=== PATIENT | female | born 1930 | race Caucasian/White ===

== ENCOUNTER 2017-12-02 19:07 | Inpatient (IN) | payer OTHER, MEDICAID, MEDICARE ==
[~2017-12-02] VITALS: Ht 152.4 cm; Wt 73.7 kg
[2017-12-02 19:20] VITALS: BP_SYST 184; BP_SYST 187; BP_DIAS 101; BP_DIAS 88; PULSE 75; RESP 18; TEMP 98.2; O2SAT 99
--- NOTE | 2017-12-02 19:39 | PD ---
HPI Chief Complaint: Neuro Symptoms/ Deficits Time Seen by Provider: 19:26 Travel History International Travel<30 days: No Contact w/Intl Traveler<30days: No Traveled to known affect area: No History of Present Illness HPI The patient was seen and examined in the presence of the nurse. This patient is brought in by her daughter. She is worried that her mother is having a stroke. 3 days ago she had a 5 minute spell of slurred and garbled speech that happened when she was talking her daughter over the phone. She drove over to her house but by the time she got there it had resolved. The next 2 days she was neurologically fine. Today she had another episode of slurred and garbled speech for about 5 minutes. It has resolved and she is not talking fine. Accu- Chek 1:15. She is insulin-dependent diabetic and hypertensive but no history of CVA or TIA. She denies headache or injury or fever. No alleviating factors. No exacerbating factors PFSH Social History Alcohol Use: No Tobacco Use: No Substance Use: No Allergies-Medications (Allergen,Severity, Reaction): Coded Allergies: cephalexin (Verified Allergy, Intermediate, Rash, 12/02/17) ciprofloxacin (Verified Allergy, Intermediate, Rash, 12/02/17) Penicillins (Verified Allergy, Unknown, 12/02/17) morphine (Verified Allergy, Unknown, 12/02/17) Reported Meds & Prescriptions Reported Meds & Active Scripts Active Reported Ditropan (Oxybutynin Chloride) 5 Mg Tab 5 Mg PO DAILY Vitamin C (Ascorbic Acid) 250 Mg Tab 250 Mg PO DAILY Flax Seed Oil (Flaxseed (Linseed)) 1,000 Mg Cap 1 Cap PO DAILY Ocuvite (Multiple Vitamins W/ Minerals) 1 Tab 1 Tab PO DAILY Aspirin Low Dose (Aspirin) 81 Mg Chew 81 Mg CHEW HS Hydralazine HCl 25 Mg Tablet 25 Mg PO TID Calcitriol 0.25 Mcg Cap 0.25 Mcg PO MON, WED, FRI Furosemide 20 Mg Tab 20 Mg PO DAILY Losartan (Losartan Potassium) 50 Mg Tab 50 Mg PO DAILY Omeprazole 20 Mg Tab 20 Mg PO DAILY Crestor (Rosuvastatin Calcium) 20 Mg Tab 20 Mg PO DAILY Glipizide 10 Mg Tab 20 Mg PO BIDAC Take 30 minutes before a meal Levemir Flextouch Pen Inj (Insulin Detemir) 300 unit/3 ML Pen 10 Units SQ HS Levemir Flextouch Pen Inj (Insulin Detemir) 300 unit/3 ML Pen 15 Units SQ DAILY Januvia (Sitagliptin Phosphate) 100 Mg Tab 100 Mg PO DAILY Review of Systems General / Constitutional: No: Fever Eyes: No: Visual changes HENT: No: Headaches Cardiovascular: No: Chest Pain or Discomfort Respiratory: No: Shortness of Breath Gastrointestinal: No: Abdominal Pain Genitourinary: No: Dysuria Musculoskeletal: No: Pain Skin: No Rash Neurologic: Positive: Slurred Speech, No: Weakness Psychiatric: No: Depression Endocrine: No: Polydipsia Hematologic/Lymphatic: No: Easy Bruising Physical Exam Narrative GENERAL: Well-nourished, well-developed patient in no apparent distress. Very hard of hearing SKIN: Focused skin assessment reveals no rash and nodules. Skin is Warm and dry. HEAD: Atraumatic. Normocephalic. EYES: Pupils equal and round. No scleral icterus. No injection or drainage. ENT: No nasal bleeding or discharge. Mucous membranes pink and moist. NECK: Trachea midline. No JVD. CARDIOVASCULAR: Regular rate and rhythm. No murmur appreciated. RESPIRATORY: No accessory muscle use. Clear to auscultation. Breath sounds equal bilaterally. GASTROINTESTINAL: Abdomen soft, non-tender, nondistended. Hepatic and splenic margins not palpable. MUSCULOSKELETAL: No obvious deformities. No clubbing. No cyanosis. Symmetric edema of the lower extremities and ankles . NEUROLOGICAL: Awake and alert. No obvious cranial nerve deficits. Motor grossly within normal limits. Normal speech. PSYCHIATRIC: Appropriate mood and affect; insight and judgment normal. Data Data Last Documented VS Vital Signs Date Time Temp Pulse Resp B/P (MAP) Pulse Ox O2 Delivery O2 Flow Rate FiO2 12/02/17 20:24 68 18 173/89 (117) 98 Room Air 12/02/17 19:20 98.2 Orders Orders Electrocardiogram (12/02/17 19:35) Prothrombin Time / Inr (Pt) (12/02/17 19:35) Act Partial Throm Time (Ptt) (12/02/17 19:35) Complete Blood Count With Diff (12/02/17 19:35) Basic Metabolic Panel (Bmp) (12/02/17 19:35) Ct Brain W/O Iv Contrast(Rout) (12/02/17 19:35) Ecg Monitoring (12/02/17 19:35) Iv Access Insert/Monitor (12/02/17 19:35) Oximetry (12/02/17 19:35) Labs Laboratory Tests Test 12/02/17 19:30 White Blood Count 7.1 TH/MM3 Red Blood Count 4.34 MIL/MM3 Hemoglobin 12.6 GM/DL Hematocrit 37.2 % Mean Corpuscular Volume 85.6 FL Mean Corpuscular Hemoglobin 28.9 PG Mean Corpuscular Hemoglobin Concent 33.8 % Red Cell Distribution Width 13.8 % Platelet Count 117 TH/MM3 Mean Platelet Volume 9.3 FL Neutrophils (%) (Auto) 72.7 % Lymphocytes (%) (Auto) 18.6 % Monocytes (%) (Auto) 6.7 % Eosinophils (%) (Auto) 1.0 % Basophils (%) (Auto) 1.0 % Neutrophils # (Auto) 5.1 TH/MM3 Lymphocytes # (Auto) 1.3 TH/MM3 Monocytes # (Auto) 0.5 TH/MM3 Eosinophils # (Auto) 0.1 TH/MM3 Basophils # (Auto) 0.1 TH/MM3 CBC Comment DIFF FINAL Differential Comment Prothrombin Time 10.9 SEC Prothromb Time International Ratio 1.1 RATIO Activated Partial Thromboplast Time 26.6 SEC Blood Urea Nitrogen 26 MG/DL Creatinine 1.40 MG/DL Random Glucose 98 MG/DL Calcium Level 10.5 MG/DL Sodium Level 143 MEQ/L Potassium Level 3.8 MEQ/L Chloride Level 110 MEQ/L Carbon Dioxide Level 25.9 MEQ/L Anion Gap 7 MEQ/L Estimat Glomerular Filtration Rate 36 ML/MIN MDM Medical Decision Making Medical Screen Exam Complete: Yes Emergency Medical Condition: Yes Medical Record Reviewed: Yes Differential Diagnosis TIA, CVA, anxiety Narrative Course I have reviewed the patient's electronic medical record. Reviewed her radiation oncologist note where she received radiation for skin Cancer on the Leg IV placed and labs ordered I reviewed her EKG which shows sinus rhythm Brain CT is negative Lab studies reviewed. She has some renal insufficiency This patient has had 2 episodes of speech slurring/aphasia. Potentially could represent TIA Patient will be observed in the hospital on telemetry for neurologic evaluation Call placed to hospitalist to discuss Diagnosis Primary Impression: TIA (transient ischemic attack) Qualified Codes: G45.9 - Transient cerebral ischemic attack, unspecified Additional Impression: Hypertension Qualified Codes: I10 - Essential (primary) hypertension Admitting Information Admitting Physician Requests: Observation Barry Mcdaniels MD Dec 02, 2017 19:39
[2017-12-02 19:53] LABS: AUTOMATED NEUTROPHIL # 5.1 TH/MM3 (1.8-7.7); BASOPHIL # 0.1 TH/MM3 (0-0.2); EOSINOPHIL # 0.1 TH/MM3 (0-0.4); HEMATOCRIT 37.2 % (35.0-46.0); HEMOGLOBIN 12.6 GM/DL (11.6-15.3); LYMPH % 18.6 % (9.0-44.0); LYMPHOCYTE # 1.3 TH/MM3 (1.0-4.8); MEAN CELL VOLUME 85.6 FL (80.0-100.0); MEAN CORPUSCULAR HEMOGLOBIN 28.9 PG (27.0-34.0); MEAN CORPUSCULAR HGB CONC 33.8 % (32.0-36.0); MEAN PLATELET VOLUME 9.3 FL (7.0-11.0); MONO % 6.7 % (0.0-8.0); MONOCYTE # 0.5 TH/MM3 (0-0.9); NEUT % 72.7 % (16.0-70.0); PLATELET COUNT 117 TH/MM3 (150-450); RED BLOOD COUNT 4.34 MIL/MM3 (4.00-5.30); RED CELL DISTRIBUTION WIDTH 13.8 % (11.6-17.2); WHITE BLOOD COUNT 7.1 TH/MM3 (4.0-11.0)
[2017-12-02 20:05] LABS: BICARBONATE 25.9 MEQ/L (21.0-32.0); CALCIUM 10.5 MG/DL (8.5-10.1)
[2017-12-02 20:07] LABS: INTERNATIONAL NORMALIZED RATIO 1.1 RATIO; PROTHROMBIN TIME - PATIENT 10.9 SEC (9.8-11.6)
[2017-12-02] MEDS ORDERED: FLAX100013 PO (20:08)
[2017-12-02] MEDS ORDERED: FURO20TA PO (20:08)
[2017-12-02] MEDS ORDERED: OXYB5TAB8 PO (20:08)
[2017-12-02] MEDS ORDERED: HYDR-3799 PO (20:08)
[2017-12-02] MEDS ORDERED: CALC0.25 PO (20:08)
[2017-12-02] MEDS ORDERED: OMEP20TA93 PO (20:08)
[2017-12-02] MEDS ORDERED: OCUVTAB PO (20:08)
[2017-12-02] MEDS ORDERED: SITA1TAB2 PO (20:08)
[2017-12-02] MEDS ORDERED: ASPI81CH6 CHEW (20:08)
[2017-12-02] MEDS ORDERED: VITA250T3 PO (20:08)
[2017-12-02] MEDS ORDERED: LOSA50TA PO (20:08)
[2017-12-02] MEDS ORDERED: INSU1INJ5 SQ ×2 (20:08)
[2017-12-02] MEDS ORDERED: ROSU20 PO (20:08)
[2017-12-02] MEDS ORDERED: GLIP10TA6 PO (20:08)
[2017-12-02 20:09] LABS: CREATININE 1.4 MG/DL (0.50-1.00)
[2017-12-02 20:24] VITALS: BP 173/89; PULSE 68; RESP 18; O2SAT 98
--- NOTE | 2017-12-02 21:05 | RADRPT ---
EXAM DATE/TIME: 12/02/2017 20:06 [facility] COMPARISON: No previous studies available for comparison. INDICATIONS : Altered mental status. Slurred speech. RADIATION DOSE: 61.85 CTDIvol (mGy) MEDICAL HISTORY : Hypertension. Diabetes mellitus type 2. Renal failure, chronic. SURGICAL HISTORY : None. ENCOUNTER: Initial ACUITY: 4 - 6 days PAIN SCALE: 5/10 LOCATION: cranial TECHNIQUE: Multiple contiguous axial images were obtained of the head. Using automated exposure control and adj ustment of the mA and/or kV according to patient size, radiation dose was kept as low as reasonably a chievable to obtain optimal diagnostic quality images. DICOM format image data is available electro nically for review and comparison. FINDINGS: CEREBRUM: The ventricles are normal for age. No evidence of midline shift, mass lesion, hemorrhage or acute in farction. No extra-axial fluid collections are seen. POSTERIOR FOSSA: The cerebellum and brainstem are intact. The 4th ventricle is midline. The cerebellopontine angle i s unremarkable. EXTRACRANIAL: The visualized portion of the orbits is intact. SKULL: The calvaria is intact. No evidence of skull fracture. CONCLUSION: No acute intracranial abnormality. Maynor Cunha MD on December 02, 2017 at 21:01 Board Certified Radiologist. This report was verified electronically.
[2017-12-02] MEDS ORDERED: SODIUM CHLORIDE 0.9% FLUSH 10 ML FLUSH IV FLUSH PRN (21:45)
[2017-12-02] MEDS ORDERED: GLUCAGON 1 MG/ML VIAL OTHER PRN (21:45)
[2017-12-02] MEDS ORDERED: DEXTROSE 50% IN WATER 50 ML VIAL(D50) IV PUSH PRN (21:45)
[2017-12-02 22:35] VITALS: BP 142/64; PULSE 63; RESP 18; O2SAT 95
[2017-12-02 23:15] VITALS: BP 150/68; PULSE 63; RESP 20; TEMP 98; O2SAT 96
[2017-12-03] VITALS (7 sets, daily range): BP systolic 121–186; BP diastolic 57–85; PULSE 55–64; RESP 18–20; TEMP 96.7–97.7; O2SAT 95–100
[2017-12-03] MEDS: SODIUM CHLORIDE 0.9% FLUSH 10 ML FLUSH IV FLUSH SCH ×3 (08:35→20:49)
[2017-12-03] MEDS ORDERED: FLAXSEED PO SCH (09:45)
[2017-12-03] MEDS ORDERED: DEXTROSE 50% IN WATER 50 ML VIAL(D50) IV PUSH PRN (09:45)
[2017-12-03] MEDS ORDERED: SODIUM CHLORIDE 0.9% FLUSH 10 ML FLUSH IV FLUSH PRN (09:45)
[2017-12-03] MEDS ORDERED: GLUCAGON 1 MG/ML VIAL OTHER PRN (09:45)
--- NOTE | 2017-12-03 09:48 | HHI.HP ---
[facility] Primary Care Physician Toño Thomas DO Admission Diagnosis TIA, HTN Diagnoses: (1) GERD (gastroesophageal reflux disease) Diagnosis: Secondary (2) Hyperlipidemia Diagnosis: Secondary (3) Diabetes mellitus Diagnosis: Secondary (4) Hypertension Diagnosis: Secondary (5) TIA (transient ischemic attack) Diagnosis: Principal Chief Complaint: Neuro symptoms/deficit/TIA Travel History International Travel<30 Days: No Contact w/Intl Traveler <30 Da: No Traveled to Known Affected Are: No History of Present Illness Patient is a 87-year-old female who presented with slurred speech per her daughter. Patient was brought in by her daughter. Daughter was worried that that her mother was having a stroke. 3 days ago patient had a 5 minute spell of slurred and garbled speech that happened when she was talking with her daughter over the phone. Her daughter drove over to her house but by the time she got there it had resolved. The next 2 days she was neurologically fine yesterday she had another episode of slurred and garbled speech for about 5 minutes it resolved and and patient is now talking normally. She is an insulin- dependent diabetic and has hypertension no history of CVAs or TIAs. Was found to have a normal blood sugar, At that time Patient will be seen by neurology. Will check a urinalysis. 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 Review of Systems Constitutional: DENIES: Diaphoretic episodes, Fatigue, Fever, Weight gain, Weight loss, Chills, Dizziness, Change in appetite, Night Sweats Endocrine: DENIES: Abnorml menstrual pattern, Heat/cold intolerance, Polydipsia , Polyuria, Polyphagia Eyes: DENIES: Blurred vision, Diplopia, Eye inflammation, Eye pain, Vision loss , Photosensitivity, Double Vision Ears, nose, mouth, throat: COMPLAINS OF: Hearing loss, DENIES: Tinnitus, Vertigo, Nasal discharge, Oral lesions, Throat pain, Hoarseness, Ear Pain, Running Nose, Epistaxis, Sinus Pain, Toothache, Odynophagia Respiratory: DENIES: Apneas, Cough, Snoring, Wheezing, Hemoptysis, Sputum production, Shortness of breath Cardiovascular: DENIES: Chest pain, Palpitations, Syncope, Dyspnea on Exertion , PND, Lower Extremity Edema, Orthopnea, Claudication Gastrointestinal: DENIES: Abdominal pain, Black stools, Bloody stools, Constipation, Diarrhea, Nausea, Vomiting, Difficulty Swallowing, Anorexia Genitourinary: DENIES: Abnormal vaginal bleeding, Dysmenorrhea, Dyspareunia, Sexual dysfunction, Urgency, Hematuria Musculoskeletal: DENIES: Joint pain, Muscle aches, Stiffness, Joint Swelling, Back pain, Neck pain Integumentary: DENIES: Abnormal pigmentation, Pruritus, Rash, Nail changes, Breast masses, Breast skin changes Hematologic/lymphatic: DENIES: Bruising, Lymphadenopathy Immunologic/allergic: DENIES: Eczema, Urticaria Neurologic: COMPLAINS OF: Speech Problems, DENIES: Abnormal gait, Headache, Localized weakness, Paresthesias, Seizures, Tremor, Poor Balance Psychiatric: DENIES: Anxiety, Confusion, Mood changes, Depression, Hallucinations, Agitation, Suicidal Ideation, Homicidal Ideation, Delusions Except as stated in HPI: all other systems reviewed are Neg Past Family Social History Past Medical History Diabetes mellitus Hypertension Hyperlipidemia GERD Renal insufficiency Urinary incontinence Skin cancer Past Surgical History Blepharoplasty cataract surgery Skin cancer History of tracheotomy as a child Tubal ligation cholecystectomy Reported Medications Reported Meds & Active Scripts Active Reported Ditropan (Oxybutynin Chloride) 5 Mg Tab 5 Mg PO DAILY Vitamin C (Ascorbic Acid) 250 Mg Tab 250 Mg PO DAILY Flax Seed Oil (Flaxseed (Linseed)) 1,000 Mg Cap 1 Cap PO DAILY Ocuvite (Multiple Vitamins W/ Minerals) 1 Tab 1 Tab PO DAILY Aspirin Low Dose (Aspirin) 81 Mg Chew 81 Mg CHEW HS Hydralazine HCl 25 Mg Tablet 25 Mg PO TID Calcitriol 0.25 Mcg Cap 0.25 Mcg PO MON, WED, FRI Furosemide 20 Mg Tab 20 Mg PO DAILY Losartan (Losartan Potassium) 50 Mg Tab 50 Mg PO DAILY Omeprazole 20 Mg Tab 20 Mg PO DAILY Crestor (Rosuvastatin Calcium) 20 Mg Tab 20 Mg PO DAILY Glipizide 10 Mg Tab 20 Mg PO BIDAC Take 30 minutes before a meal Levemir Flextouch Pen Inj (Insulin Detemir) 300 unit/3 ML Pen 10 Units SQ HS Levemir Flextouch Pen Inj (Insulin Detemir) 300 unit/3 ML Pen 15 Units SQ DAILY Januvia (Sitagliptin Phosphate) 100 Mg Tab 100 Mg PO DAILY Allergies: Coded Allergies: cephalexin (Verified Allergy, Intermediate, Rash, 12/02/17) ciprofloxacin (Verified Allergy, Intermediate, Rash, 12/02/17) Penicillins (Verified Allergy, Unknown, 12/02/17) morphine (Verified Allergy, Unknown, 12/02/17) Active Ordered Medications Current Medications Sodium Chloride (NS Flush) 2 ml BID IV FLUSH Last administered on 12/03/17at 08: 35; Start 12/03/17 at 09:00 Sodium Chloride (NS Flush) 2 ml UNSCH PRN IV FLUSH FLUSH AFTER USING IV ACCESS ; Start 12/02/17 at 21:45 Dextrose (D50w (Vial) Inj) 50 ml UNSCH PRN IV PUSH HYPOGLYCEMIA-SEE COMMENTS; Start 12/02/17 at 21:45 Glucagon (Glucagon Inj) 1 mg UNSCH PRN OTHER HYPOGLYCEMIA-SEE COMMENTS; Start 12/02/17 at 21:45 Family History Patient's parents both hypertension in the family Social History Former smoker quit about 20 years ago denies any current tobacco Denies any alcohol or illicits Physical Exam Vital Signs Vital Signs Date Time Temp Pulse Resp B/P (MAP) Pulse Ox O2 Delivery O2 Flow Rate FiO2 12/03/17 07:55 96.7 55 18 138/57 (84) 98 12/03/17 04:08 97.1 60 20 145/66 (92) 96 12/02/17 23:15 98.0 63 20 150/68 (95) 96 12/02/17 23:15 12/02/17 23:15 98.0 63 20 150/68 (95) 96 12/02/17 22:35 63 18 142/64 (90) 95 Room Air 12/02/17 20:24 68 18 173/89 (117) 98 Room Air 12/02/17 19:20 Room Air 12/02/17 19:20 98.2 75 18 184/88 (120) 99 187/101 (129) Physical Exam GENERAL: This is a well-nourished, well-developed patient, in no apparent distress. SKIN: No rashes, ecchymoses or lesions. Cool and dry. HEAD: Atraumatic. Normocephalic. No temporal or scalp tenderness. EYES: Pupils equal round and reactive. Extraocular motions intact. No scleral icterus. No injection or drainage. ENT: Nose without bleeding, purulent drainage or septal hematoma. Throat without erythema, tonsillar hypertrophy or exudate. Uvula midline. Airway patent. NECK: Trachea midline. No JVD or lymphadenopathy. Supple, nontender, no meningeal signs. CARDIOVASCULAR: Regular rate and rhythm without murmurs, gallops, or rubs. RESPIRATORY: Clear to auscultation. Breath sounds equal bilaterally. No wheezes , rales, or rhonchi. GASTROINTESTINAL: Abdomen soft, non-tender, nondistended. No hepato-splenomegaly , or palpable masses. No guarding. MUSCULOSKELETAL: Extremities without clubbing, cyanosis, or edema. No joint tenderness, effusion, or edema noted. No calf tenderness. Negative Homans sign bilaterally. NEUROLOGICAL: Awake and alert. Cranial nerves II through XII intact. Motor and sensory grossly within normal limits. Five out of 5 muscle strength in all muscle groups. Normal speech. Insight and judgment is good Mood behaviors appropriate Laboratory Laboratory Tests Test 12/02/17 19:30 12/03/17 05:15 White Blood Count 7.1 Red Blood Count 4.34 Hemoglobin 12.6 Hematocrit 37.2 Mean Corpuscular Volume 85.6 Mean Corpuscular Hemoglobin 28.9 Mean Corpuscular Hemoglobin Concent 33.8 Red Cell Distribution Width 13.8 Platelet Count 117 Mean Platelet Volume 9.3 Neutrophils (%) (Auto) 72.7 Lymphocytes (%) (Auto) 18.6 Monocytes (%) (Auto) 6.7 Eosinophils (%) (Auto) 1.0 Basophils (%) (Auto) 1.0 Neutrophils # (Auto) 5.1 Lymphocytes # (Auto) 1.3 Monocytes # (Auto) 0.5 Eosinophils # (Auto) 0.1 Basophils # (Auto) 0.1 CBC Comment DIFF FINAL Differential Comment Prothrombin Time 10.9 Prothromb Time International Ratio 1.1 Activated Partial Thromboplast Time 26.6 Blood Urea Nitrogen 26 Creatinine 1.40 Random Glucose 98 Calcium Level 10.5 Sodium Level 143 Potassium Level 3.8 Chloride Level 110 Carbon Dioxide Level 25.9 Anion Gap 7 Estimat Glomerular Filtration Rate 36 Result Diagram: 12/02/17192912/02/171929 Imaging Last Impressions Head CT 12/02/171934 Signed Impressions: Service Date/Time: Saturday, December 02, 2017 20:06 - CONCLUSION: No acute intracranial abnormality. MD Mariola Esquivel VTE Risk Assessment Caprini VTE Risk Assessment: Mod/High Risk (score >= 2) Caprini Risk Assessment Model Point Value = 1 Point Value = 2 Point Value = 3 Point Value = 5 Age 41-60 Minor surgery BMI > 25 kg/m2 Swollen legs Varicose veins or History of unexplained or recurrent spontaneous Oral contraceptives or hormone replacement Sepsis (< 1 month) Serious lung disease, including pneumonia (< 1 month) Abnormal pulmonary function Acute myocardial infarction Congestive heart failure (< 1 month) History of inflammatory bowel disease Medical patient at bed rest Age 61-74 Arthroscopic surgery Major open surgery (> 45 min) Laparoscopic surgery (> 45 min) Malignancy Confined to bed (> 72 hours) Immobilizing plaster cast Central venous access Age >= 75 History of VTE Family history of VTE Factor V Leiden Prothrombin 28196T Lupus anticoagulant Anticardiolipin antibodies Elevated serum homocysteine Heparin-induced thrombocytopenia Other congenital or acquired thrombophilia Stroke (< 1 month) Elective arthroplasty Hip, pelvis, or leg fracture Acute spinal cord injury (< 1 month) Prophylaxis Regimen Total Risk Factor Score Risk Level Prophylaxis Regimen 0-1 Low Early ambulation 2 Moderate Order ONE of the following: *Sequential Compression Device (SCD) *Heparin 5000 units SQ BID 3-4 Higher Order ONE of the following medications: *Heparin 5000 units SQ TID *Enoxaparin/Lovenox 40 mg SQ daily (WT < 150 kg, CrCl > 30 mL/min) *Enoxaparin/Lovenox 30 mg SQ daily (WT < 150 kg, CrCl > 10-29 mL/min) *Enoxaparin/Lovenox 30 mg SQ BID (WT < 150 kg, CrCl > 30 mL/min) AND/OR *Sequential Compression Device (SCD) 5 or more Highest Order ONE of the following medications: *Heparin 5000 units SQ TID (Preferred with Epidurals) *Enoxaparin/Lovenox 40 mg SQ daily (WT < 150 kg, CrCl > 30 mL/min) *Enoxaparin/Lovenox 30 mg SQ daily (WT < 150 kg, CrCl > 10-29 mL/min) *Enoxaparin/Lovenox 30 mg SQ BID (WT < 150 kg, CrCl > 30 mL/min) AND *Sequential Compression Device (SCD) Assessment and Plan Problem List: (1) GERD (gastroesophageal reflux disease) ICD Code: K21.9 - Gastro-esophageal reflux disease without esophagitis (2) Hyperlipidemia ICD Code: E78.5 - Hyperlipidemia, unspecified (3) Diabetes mellitus ICD Code: E11.9 - Type 2 diabetes mellitus without complications (4) Hypertension ICD Code: I10 - Essential (primary) hypertension Status: Acute (5) TIA (transient ischemic attack) ICD Code: G45.9 - Transient cerebral ischemic attack, unspecified Status: Acute Assessment and Plan TIA type symptoms versus CVA We will consult neurology We will continue on an aspirin We will get echocardiogram We will get carotid Dopplers We will get MRI and MRA We will ask physical therapy and occupational therapy and speech therapy to eval and treat Hypertension resume home medications Hyperlipidemia resume home statin check fasting lipids GERD continue on her home medications Diabetes mellitus sliding scale coverage with Accu-Cheks before meals and at bedtime, is on multiple medications for this may have had a hypoglycemic event??? Overflow incontinence resume her Ditropan We will check a urinalysis to make sure she does not have a urinary tract infection Renal insufficiency chronic kidney disease stage II-III depending on ua and neurology possible dc to home later today or tomorrow Code Status full code Discussed Condition With RN and patient Problem Qualifiers (1) Hypertension: Qualified Codes: I10 - Essential (primary) hypertension (2) TIA (transient ischemic attack): Qualified Codes: G45.9 - Transient cerebral ischemic attack, unspecified Toño Francis DO Dec 03, 2017 09:48
[2017-12-03] MEDS ORDERED: PILL SPLITTER OTHER PRN (10:15)
[2017-12-03 10:34] LABS: TROPONIN I LESS THAN 0.02 NG/ML (0.02-0.05)
[2017-12-03 10:37] LABS: CHOLESTEROL 81 MG/DL (120-200)
[2017-12-03 10:42] LABS: CHOLESTEROL/ HDL RATIO 2.46 RATIO; HDL CHOLESTEROL 32.8 MG/DL (40.0-60.0); LDL CHOLESTEROL 21 MG/DL (0-99); TRIGLYCERIDES 137 MG/DL (42-150)
--- NOTE | 2017-12-03 10:59 | RADRPT ---
EXAM DATE/TIME: 12/03/2017 08:54 [facility] COMPARISON: No previous studies available for comparison. INDICATIONS : Cerebrovascular accident. MEDICAL HISTORY : Hypertension. Dentures. Dyspnea. Diverticulitis. Renal failure. Arthritis. Diabetes. Tracheotomy. Skin cancer. Radiation therapy. SURGICAL HISTORY : Tonsillectomy. Cholecystectomy. Tubal ligation. Cataract surgery. ENCOUNTER: Initial ACUITY: 1 day PAIN SCORE: 0/10 LOCATION: Bilateral neck PEAK SYSTOLIC VELOCITIES (cm/sec): ICA/CCA RATIO: Right: 1.5 Left: 0.9 ICA: Right: 77.5 Left: 57.0 CCA: Right: 51.5 Left: 64.5 ECA: Right: 78.5 Left: 75.8 VERTEBRAL: Right: 55.5 antegrade Left: 41.7 antegrade Elevated flow velocities and ICA/CCA ratios have been found to correlate with increased degrees of vessel stenosis, calculated as percentage of diameter relative to a normal segment of distal ICA/CCA FINDINGS: RIGHT CAROTID: There is no evidence for a hemodynamically significant carotid stenosis. Minimal int imal hyperplasia is present with scattered calcific plaque. LEFT CAROTID: There is no evidence for a hemodynamically significant carotid stenosis. Minimal inti mal hyperplasia is present with scattered calcific plaque. VERTEBRAL ARTERIES: Flow is antegrade in both vertebral arteries. MISCELLANEOUS: There are no ancillary masses or adenopathy. CONCLUSION: Negative examination for a hemodynamically significant carotid stenosis. Toño Young MD FACR on December 03, 2017 at 10:57 Board Certified Radiologist. This report was verified electronically.
[2017-12-03] MEDS: ATORVASTATIN 40 MG TAB PO SCH (11:25)
[2017-12-03] MEDS: PANTOPRAZOLE SOD 20 MG DELAYED RELEASE TAB PO SCH (11:26)
[2017-12-03] MEDS: ASCORBIC ACID 500 MG TAB PO SCH (11:26)
[2017-12-03] MEDS: OXYBUTYNIN CHLORIDE 5 MG TAB PO SCH (11:27)
[2017-12-03] MEDS: LOSARTAN 50 MG TAB PO SCH (11:27)
[2017-12-03] MEDS: MULTIVITAMIN-OPHTHALMIC 1 TAB PO SCH (11:28)
[2017-12-03] MEDS: FUROSEMIDE 20 MG TAB PO SCH (11:28)
[2017-12-03] MEDS: INSULIN ASPART SUPPLEMENTAL SCALE SQ SCH ×3 (12:00→20:50)
[2017-12-03] MEDS ORDERED: ENOXAPARIN SODIUM 30 MG/0.3 ML SYRINGE SQ SCH (12:00)
[2017-12-03] MEDS: hydrALAZINE HCL 25 MG TAB PO SCH ×2 (12:37→17:23)
[2017-12-03 13:32] LABS: BILIRUBIN, URINE NEG (NEG); BLOOD, URINE NEG (NEG); GLUCOSE,URINE NEG (NEG); KETONE, URINE NEG (NEG); NITRITE,URINE NEG (NEG); PH, URINE 6.5 (5.0-8.5); URINE COLOR YELLOW (YELLW/STRAW); URINE LEUKOCYTE ESTERASE NEG (NEG)
[2017-12-03 13:50] LABS: SQUAMOUS EPITHELIAL CELL URINE 0-5 /hpf (0-5)
--- NOTE | 2017-12-03 15:52 | RADRPT ---
EXAM DATE/TIME: 12/03/2017 14:23 [facility] COMPARISON: No previous studies available for comparison. INDICATIONS : Stroke. MEDICAL HISTORY : Hypertension. Diabetes mellitus type 2. Renal failure, chronic. SURGICAL HISTORY : Cholecystectomy. Kidney Stones, Hernia ENCOUNTER: Subsequent ACUITY: 2 day PAIN SCORE: 0/10 LOCATION: BRAIN - COW Please note a normal MRA of the brain does not entirely exclude the possibility of a small aneurysm, nor the possibility of distal intracranial vessel disease. TECHNIQUE: 3D time of flight MRA was performed. Source images, multiplanar STS MIP, and 3D volume MIP reconstru ctions were reviewed. FINDINGS: There is mild proximal stenotic narrowing of the anterior temporal branch of the left middle cerebral artery. The [place] vessels are lies symmetric, intact and unremarkable with no evidence of major vessel occlusion. There is no evidence of aneurysm or vascular malformation. CONCLUSION: Mild focal stenotic narrowing of the anterior temporal branch of left MCA which is likely intrinsic N ephrotic disease. No acute cerebrovascular findings. Rachid Mooney MD on December 03, 2017 at 15:46 Board Certified Radiologist. This report was verified electronically.
[2017-12-03 16:24] LABS: TROPONIN I LESS THAN 0.02 NG/ML (0.02-0.05)
--- NOTE | 2017-12-03 16:42 | RADRPT ---
EXAM DATE/TIME: 12/03/2017 14:23 [facility] COMPARISON: No previous studies available for comparison. INDICATIONS : CVA. MEDICAL HISTORY : Hypertension. Diabetes mellitus type 2. Renal failure, chronic. SURGICAL HISTORY : Cholecystectomy. Kidney Stones, Hernia ENCOUNTER: Subsequent ACUITY: PAIN SCORE: 0/10 LOCATION: BRAIN TECHNIQUE: Multiplanar, multisequence MRI of the brain was performed without contrast. FINDINGS: CEREBRUM: Mild diffuse cerebral volume loss. The ventricles are normal for degree of atrophy. No evidence of m idline shift, mass lesion, hemorrhage or acute infarction. No extraaxial fluid collections are seen. The pituitary gland and suprasellar cistern are normal in configuration. WHITE MATTER: Moderate periventricular and focal white matter T2 prolongation. POSTERIOR FOSSA: The cerebellum and brainstem are intact. The 4th ventricle is midline. The cerebellopontine angle is unremarkable. The cerebellar tonsils are normal in position. DIFFUSION IMAGING: No focal areas of restricted diffusion are seen. No evidence of acute infarction. EXTRACRANIAL: The visualized portions of the orbits and paranasal sinuses are unremarkable. CONCLUSION: 1. Senescent changes with moderate periventricular small vessel ischemic white matter demyelination. 2. No acute abnormality. Specifically, no acute infarction, mass or hemorrhage. Missael Piper MD on December 03, 2017 at 16:37 Board Certified Radiologist. This report was verified electronically.
--- NOTE | 2017-12-03 17:19 | HHI.FF ---
Face to Face Verification Diagnosis: (1) GERD (gastroesophageal reflux disease) (2) Hyperlipidemia (3) Diabetes mellitus (4) Hypertension (5) TIA (transient ischemic attack) Physical Therapy Order: Evaluate and Treat, Improve ambulation, Strength and gait training Occupational Therapy Order: Evaluate and Treat, Improve ADL, Gross motor coordination, Fine motor coordination Home Health Nursing Order: Signs/symptoms of disease process Nursing assessment with vital signs Home Health Aide Order: To Assist In: Bathing and personal care, siding stapler and meal prep I have seen patient Vika Flores on 12/03/17. My clinical findings support the need for the requested home health care services because: Deconditioned w/ increased weakness I certify that my clinical findings support that this patient is homebound because: Need for psychosocial assistance Toño Francis DO Dec 03, 2017 17:19
[2017-12-03 18:19] LABS: HEMOGLOBIN A1C 6.5 % (4.3-6.0)
--- NOTE | 2017-12-03 19:49 | ECHRPT ---
Indication: CVA/TIA CONCLUSIONS The left ventricular systolic function is normal with an estimated ejection fraction in the range of 60-65%. Normal left ventricular size. Wall thickness is normal. No regional wall motion abnormalities are present. Aortic valve sclerosis is present. Trace aortic valve regurgitation. There is trace tricuspid valve regurgitation. The estimated pulmonary arterial pressure is 41 mmHg. BP: 145 / 66 HR: 92 Rhythm: Sinus MEASUREMENTS (Male / Female) Normal Values Technical Quality:Fair 2D ECHO LV Diastolic Diameter PLAX 4.3 cm 4.2 - 5.9 / 3.9 - 5.3 cm LV Systolic Diameter PLAX 3.0 cm IVS Diastolic Thickness 1.4 cm 0.6 - 1.0 / 0.6 - 0.9 cm LVPW Diastolic Thickness 1.3 cm 0.6 - 1.0 / 0.6 - 0.9 cm LV Relative Wall Thickness 0.6 RV Internal Dim ED PLAX 2.8 cm LVOT Diameter 1.8 cm LA Systolic Diameter LX 3.9 cm 3.0 - 4.0 / 2.7 - 3.8 cm LV Ejection Fraction MOD 4C 64.4 % LV Cardiac Index MOD 4C 2409.6 cm/minm LV Ejection Fraction 4C AL 66.4 % LV Cardiac Index 4C AL 2651.8 cm/minm M-MODE Aortic Root Diameter MM 2.3 cm LA Systolic Diameter MM 3.8 cm LA Ao Ratio MM 1.7 AV Cusp Separation MM 1.7 cm DOPPLER AV Peak Velocity 160.0 cm/s AV Peak Gradient 10.2 mmHg LVOT Peak Velocity 110.0 cm/s LVOT Peak Gradient 4.8 mmHg AV Area Cont Eq pk 1.7 cm MV Area PHT 2.8 cm Mitral E Point Velocity 122.0 cm/s Mitral A Point Velocity 84.9 cm/s Mitral E to A Ratio 1.4 LV E' Lateral Velocity 6.7 cm/s Mitral E to LV E' Lateral Ratio 18.1 LV E' Septal Velocity 4.8 cm/s Mitral E to LV E' Septal Ratio 25.5 TR Peak Velocity 278.0 cm/s TR Peak Gradient 30.9 mmHg Right Atrial Pressure 10.0 mmHg Pulmonary Artery Systolic Pressu 40.9 mmHg Right Ventricular Systolic Press 40.9 mmHg PV Peak Velocity 92.3 cm/s PV Peak Gradient 3.4 mmHg FINDINGS LEFT VENTRICLE The left ventricular systolic function is normal with an estimated ejection fraction in the range of 60-65%. Normal left ventricular size. Wall thickness is normal. No regional wall motion abnormalities are present. RIGHT VENTRICLE Normal right ventricular size and systolic function. LEFT ATRIUM The left atrial size is normal. RIGHT ATRIUM The right atrial size is normal. ATRIAL SEPTUM Normal atrial septal thickness without atrial level shunting by limited color doppler interrogation. AORTA The aortic root and proximal ascending aorta are normal in size on limited imaging. MITRAL VALVE Structurally normal mitral valve. No mitral valve stenosis or regurgitation. AORTIC VALVE Trileaflet aortic valve. Aortic valve sclerosis is present. Trace aortic valve regurgitation. TRICUSPID VALVE Structurally normal tricuspid valve. There is trace tricuspid valve regurgitation. The estimated pulmonary arterial pressure is 40.9 mmHg. PULMONARY VALVE No pulmonary valve regurgitation or stenosis. VESSELS The inferior vena cava is normal in size. PERICARDIUM No pericardial effusion. Roopa Moyer MD, FACC (Electronically Signed) Final Date:03 December 2017 19:48
--- NOTE | 2017-12-03 20:37 | EKG ---
Date Performed: 12/02/2017 Time Performed: 19:51:16 PTAGE: 87 years EKG: ECTOPIC ATRIAL RHYTHM MINIMAL ST DEPRESSION ABNORMAL RHYTHM ECG NO PREVIOUS TRACING DOCTOR: Mann Guzman Interpretating Date/Time 12/03/2017 20:36:53
[2017-12-03] MEDS ORDERED: ASPIRIN 81 MG CHEW TAB CHEW SCH (21:00)
[2017-12-03 22:24] LABS: TROPONIN I LESS THAN 0.02 NG/ML (0.02-0.05)
[2017-12-04] VITALS: BP 127/60; PULSE 57; RESP 20; TEMP 97.5; O2SAT 96
--- NOTE | 2017-12-04 00:28 | MB ---
cc: Clay Mina MD, PhD DATE: 12/04/2017 REASON FOR CONSULTATION: Stroke. HISTORY OF PRESENT ILLNESS: Ms. Flores is a very pleasant 87-year-old woman who came to the emergency room with sudden onset of slurred speech. No focal deficits were noted. Several days prior to this, she had an episode of slurred speech, which resolved. The patient denies any focal weakness. Denies headaches. PAST MEDICAL HISTORY: History of insulin-dependent diabetes, hypertension, GERD, renal insufficiency, urinary incontinence, blepharoplasty, cataract surgery, skin cancer, tubal ligation, cholecystectomy. MEDICINES AT HOME: Ditropan, vitamin C, flaxseed oil, aspirin 81 mg daily, Ocuvite, calcitriol, Lasix, losartan, Crestor, glipizide, insulin. ALLERGIES: CEPHALEXIN, CIPROFLOXACIN, PENICILLIN, MORPHINE. PHYSICAL EXAMINATION: VITAL SIGNS: Blood pressure is 121/58, pulse 58, respirations 20, temperature 97 degrees. NEUROLOGIC: Higher cortical function alert and oriented. Speech minimally dysarthric but not aphasic. Cranial nerves are intact. Motor exam 5/5 strength of all groups in both upper and lower extremities. There is no drift. Reflexes are symmetric at 2+. MRI of the brain shows atrophy, chronic changes, no acute change present. Carotid ultrasound is normal with no sign of any stenosis. MRA brain mild focal narrowing of the left MCA anterior temporal branch. CT brain: No acute change. LABORATORY DATA: White count 7100, hemoglobin 12.6, hematocrit 37%, platelet count 117,000. PT 10.9, INR 1.1, APTT 26.6. Sodium 143, potassium 3.8, chloride 110, BUN is 26, creatinine 1.4, GFR is 36, glucose 98. Cholesterol 81, LDL 21, triglycerides 137, HDL 32.8. EKG shows an ectopic atrial rhythm. IMPRESSION: Probable transient ischemic attack, now resolved. RECOMMENDATIONS: Recommend start Plavix 75 mg daily and stop aspirin. Will obtain an echocardiogram. Also monitor cardiac telemetry, rule out atrial fibrillation. If the patient is stable tomorrow, would be able to discharge home from the neurologic standpoint. Follow up with me in 3-4 weeks as outpatient. Clay Mina MD, PhD YRIS/rt , 12:07 AM , 12:27 AM
[2017-12-04 04:00] VITALS: BP 122/66; PULSE 65; RESP 20; TEMP 97.1; O2SAT 96
[2017-12-04 08:00] VITALS: PULSE 69
[2017-12-04] MEDS: INSULIN ASPART SUPPLEMENTAL SCALE SQ SCH (08:00)
[2017-12-04] MEDS: MULTIVITAMIN-OPHTHALMIC 1 TAB PO SCH (08:09)
[2017-12-04] MEDS: PANTOPRAZOLE SOD 20 MG DELAYED RELEASE TAB PO SCH (08:10)
[2017-12-04] MEDS: hydrALAZINE HCL 25 MG TAB PO SCH (08:10)
[2017-12-04] MEDS: FUROSEMIDE 20 MG TAB PO SCH (08:10)
[2017-12-04] MEDS: LOSARTAN 50 MG TAB PO SCH (08:10)
[2017-12-04] MEDS: OXYBUTYNIN CHLORIDE 5 MG TAB PO SCH (08:10)
[2017-12-04] MEDS: ASCORBIC ACID 500 MG TAB PO SCH (08:11)
[2017-12-04] MEDS: ATORVASTATIN 40 MG TAB PO SCH (08:11)
[2017-12-04] MEDS: SODIUM CHLORIDE 0.9% FLUSH 10 ML FLUSH IV FLUSH SCH (08:12)
--- NOTE | 2017-12-04 08:19 | HHI.DS ---
Discharge Summary Admission Date Dec 03, 2017 at 10:10 Discharge Date: Dec 04, 2017 Admitting Diagnosis TIA, HTN (1) GERD (gastroesophageal reflux disease) ICD Code: K21.9 - Gastro-esophageal reflux disease without esophagitis (2) Hyperlipidemia ICD Code: E78.5 - Hyperlipidemia, unspecified (3) Diabetes mellitus ICD Code: E11.9 - Type 2 diabetes mellitus without complications (4) Hypertension ICD Code: I10 - Essential (primary) hypertension Status: Acute (5) TIA (transient ischemic attack) ICD Code: G45.9 - Transient cerebral ischemic attack, unspecified Status: Acute Procedures No procedures Brief History - From Admission Patient is a 87-year-old female who presented with slurred speech per her daughter. Patient was brought in by her daughter. Daughter was worried that that her mother was having a stroke. 3 days ago patient had a 5 minute spell of slurred and garbled speech that happened when she was talking with her daughter over the phone. Her daughter drove over to her house but by the time she got there it had resolved. The next 2 days she was neurologically fine yesterday she had another episode of slurred and garbled speech for about 5 minutes it resolved and and patient is now talking normally. She is an insulin- dependent diabetic and has hypertension no history of CVAs or TIAs. Was found to have a normal blood sugar, At that time Patient will be seen by neurology. Will check a urinalysis. Patient states she was recently started on new medication she is not sure what by her systems security consultant CBC/BMP: 12/02/17192912/02/171929 Significant Findings Laboratory Tests Test 12/02/17 19:30 12/03/17 05:15 12/03/17 10:00 12/03/17 12:30 Platelet Count 117 TH/MM3 (150-450) Neutrophils (%) (Auto) 72.7 % (16.0-70.0) Blood Urea Nitrogen 26 MG/DL (7-18) Creatinine 1.40 MG/DL (0.50-1.00) Calcium Level 10.5 MG/DL (8.5-10.1) Chloride Level 110 MEQ/L (98-107) Estimat Glomerular Filtration Rate 36 ML/MIN (>89) Hemoglobin A1c 6.5 % (4.3-6.0) Cholesterol Level 81 MG/DL (120-200) HDL Cholesterol 32.8 MG/DL (40.0-60.0) Troponin I LESS THAN 0.02 NG/ML Urine Protein 100 mg/dL (NEG-TRACE) Test 12/03/17 15:54 12/03/17 21:50 Troponin I LESS THAN 0.02 NG/ML LESS THAN 0.02 NG/ML Imaging Last Impressions Head Magnetic Resonance Angiography 12/03/17 0000 Signed Impressions: Service Date/Time: Sunday, December 03, 2017 14:23 - CONCLUSION: Mild focal stenotic narrowing of the anterior temporal branch of left MCA which is 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 No acute cerebrovascular findings. Rachid Mooney MD Carotid Artery Ultrasound 12/03/17 0000 Signed Impressions: Service Date/Time: Sunday, December 03, 2017 08:54 - CONCLUSION: Negative examination for a hemodynamically significant carotid stenosis. Toño Young MD FACR Brain MRI 12/03/17 0000 Signed Impressions: Service Date/Time: Sunday, December 03, 2017 14:23 - CONCLUSION: 1. Senescent changes with moderate periventricular small vessel ischemic white matter demyelination. 2. No acute abnormality. Specifically, no acute infarction, mass or hemorrhage. Missael Piper MD Head CT 12/02/17 193 Signed Impressions: Service Date/Time: Saturday, December 02, 2017 20:06 - CONCLUSION: No acute intracranial abnormality. Maynor Cunha MD PE at Discharge GENERAL: This is a well-nourished, well-developed patient, in no apparent distress. CARDIOVASCULAR: Regular rate and rhythm without murmurs, gallops, or rubs. RESPIRATORY: Clear to auscultation. Breath sounds equal bilaterally. No wheezes , rales, or rhonchi. GASTROINTESTINAL: Abdomen soft, non-tender, nondistended. No hepato-splenomegaly , or palpable masses. No guarding. MUSCULOSKELETAL: Extremities without clubbing, cyanosis, or edema. No joint tenderness, effusion, or edema noted. No calf tenderness. Negative Homans sign bilaterally. NEUROLOGICAL: Awake and alert. Cranial nerves II through XII intact. Motor and sensory grossly within normal limits. Five out of 5 muscle strength in all muscle groups. Normal speech. PSYCHIATRIC: Insight and judgment is good. Mood behaviors appropriate. Pt update on day of discharge Patient is in the chair. She appears in not acute distress. Speech is normal. Says she is back at her baseline. No focal motor or sensory deficit. Feels generalized weakness however improved. Hospital Course TIA type symptoms versus CVA Consult neurology Seen by Dr. Mina neurology, recommends Plavix 75 mg p.o. daily. Discontinue the aspirin. Patient to have Plavix at discharge. 2D echo reviewed normal ejection fraction 55% Normal carotid Dopplers MRI and MRA reviewed and fairly normal Physical therapy and occupational therapy and speech therapy to eval and treat Hypertension resume home medications Hyperlipidemia resume home statin check fasting lipids GERD continue on her home medications Diabetes mellitus sliding scale coverage with Accu-Cheks before meals and at bedtime, is on multiple medications for this may have had a hypoglycemic event???. Blood sugar controlled at this time Overflow incontinence resume her Ditropan A review no signs of UTI Renal insufficiency chronic kidney disease stage II-III kidney function at baseline depending on ua and neurology possible dc to home later today or tomorrow Code Status full code Discussed Condition With Patient, nurse Patient improved. Speech is back to normal. Patient is back to her baseline. PT recommends home with home health. Patient is discharged home in stable condition to follow-up with PCP and consultants as outpatient. Pt Condition on Discharge: Stable Discharge Disposition: Disch w/ Home Health Serv Discharge Time: > 30 minutes Discharge Instructions DIET: Follow Instructions for: Heart Healthy Diet, Diabetic Diet Activities you can perform: Regular-No Restrictions Follow up Referrals: Neurology - 2 Weeks PCP Follow-up - 2-3 Days New Medications: Clopidogrel (Plavix) 75 Mg Tab 75 MG PO DAILY for Blood Clot Prevention, #30 TAB Continued Medications: Ascorbic Acid (Vitamin C) 250 Mg Tab 250 MG PO DAILY for Nutritional Supplement, TAB 0 Refills Calcitriol (Calcitriol) 0.25 Mcg Cap 0.25 MCG PO MON, WED, FRI for Calcium Supplement, #30 CAP 0 Refills Flaxseed (Linseed) (Flax Seed Oil) 1,000 Mg Cap 1 CAP PO DAILY Furosemide (Furosemide) 20 Mg Tab 20 MG PO DAILY, #30 TAB 0 Refills Glipizide (Glipizide) 10 Mg Tab 20 MG PO BIDAC for Blood Sugar Management, #60 TAB 0 Refills Take 30 minutes before a meal Hydralazine HCl (Hydralazine HCl) 25 Mg Tablet 25 MG PO TID for Blood Pressure Management, #90 TAB 0 Refills Insulin Detemir Inj (Levemir Flextouch Pen Inj) 300 unit/3 ML Pen 15 UNITS SQ DAILY for Blood Sugar Management, PEN 0 Refills Insulin Detemir Inj (Levemir Flextouch Pen Inj) 300 unit/3 ML Pen 10 UNITS SQ HS for Blood Sugar Management, PEN 0 Refills Losartan (Losartan) 50 Mg Tab 50 MG PO DAILY for Blood Pressure Management, #30 TAB 0 Refills Multiple Vitamins W/ Minerals (Ocuvite) 1 Tab 1 TAB PO DAILY for Nutritional Supplement, TAB 0 Refills Omeprazole (Omeprazole) 20 Mg Tab 20 MG PO DAILY, #30 TAB 0 Refills Oxybutynin (Ditropan) 5 Mg Tab 5 MG PO DAILY for Urinary Symptom Managemen, #60 TAB 0 Refills Rosuvastatin (Crestor) 20 Mg Tab 20 MG PO DAILY for Cholesterol Management, #30 TAB 0 Refills Sitagliptin (Januvia) 100 Mg Tab 100 MG PO DAILY for Blood Sugar Management, #30 TAB 0 Refills Discontinued Medications: Aspirin (Aspirin Low Dose) 81 Mg Chew 81 MG CHEW HS, TAB 0 Refills Lucille Velasquez MD Dec 04, 2017 08:18
[2017-12-04] MEDS ORDERED: PLAV75TA29 PO (08:29)
[2017-12-04 08:43] VITALS: BP 148/67; PULSE 61; RESP 16; TEMP 97; O2SAT 97
[2017-12-04] MEDS ORDERED: CLOPIDOGREL 75 MG TAB PO SCH (09:00)
[2017-12-04 17:02] LABS: HEMOGLOBIN A1C 6.6 % (4.3-6.0)
== END 2017-12-04 13:48 | disposition home health service (06) | DRG 69 ==
LOC: PHED 19:07 → PHEDA 21:15 → PH3A 23:15 → OBSVTOIN 12-03 10:10
PROVIDERS: ADMIT Hospitalist; ATTEND Hospitalist
DX: G45.9 Transient cerebral ischemic attack, unspecified (principal); E11.22 Type 2 diabetes mellitus with diabetic chronic kidney disease; N18.3 Chronic kidney disease, stage 3 (moderate); R47.01 Aphasia; I12.9 Hypertensive chronic kidney disease with stage 1 through stage 4 chronic kidney disease, or unspecified chronic kidney disease; K21.9 Gastro-esophageal reflux disease without esophagitis; E78.5 Hyperlipidemia, unspecified; N39.490 Overflow incontinence; Z79.4 Long term (current) use of insulin; Z82.49 Family history of ischemic heart disease and other diseases of the circulatory system; Z85.828 Personal history of other malignant neoplasm of skin; Z87.891 Personal history of nicotine dependence; Z88.0 Allergy status to penicillin; Z88.1 Allergy status to other antibiotic agents; Z88.5 Allergy status to narcotic agent; Z92.3 Personal history of irradiation
CPT/HCPCS: 70450; 70544; 70551; 80048; 80061; 81001; 82550; 82948; 83036; 84484; 85025; 85610; 85730; 93005; 93306; 93880; 94150; G0378; G8987-GP; G8988-GP; G8999-GN; G9158-GN; G9186-GN; J1650

== ENCOUNTER 2017-12-13 12:22 | Emergency (ER) | payer OTHER, MEDICAID ==
[~2017-12-13] VITALS: Ht 165.1 cm; Wt 73.6 kg
[~2017-12-13 12:22] MED LIST: CALC0.25 PO; FLAX100013 PO; FURO20TA PO; GLIP10TA6 PO; HYDR-3799 PO; INSU1INJ5 SQ; LOSA50TA PO; OCUVTAB PO; OMEP20TA93 PO; OXYB5TAB8 PO; PLAV75TA29 PO; ROSU20 PO; SITA1TAB2 PO; VITA250T3 PO
[2017-12-13 12:32] VITALS: BP 172/77; PULSE 82; RESP 16; TEMP 97.9; O2SAT 97
[2017-12-13] MEDS ORDERED: diphenhydrAMINE HCL 50 MG CAP PO ONE (13:15)
[2017-12-13] MEDS ORDERED: FAMOTIDINE 20 MG TAB PO ONE (13:15)
[2017-12-13] MEDS ORDERED: predniSONE 20 MG TAB PO ONE (13:15)
[2017-12-13] MEDS ORDERED: FAMO1TAB37 PO (14:05)
[2017-12-13] MEDS ORDERED: DIPH25CA PO (14:05)
[2017-12-13] MEDS ORDERED: PRED20 PO (14:05)
--- NOTE | 2017-12-13 14:05 | PD ---
HPI Chief Complaint: Allergic/Adverse Reaction Time Seen by Provider: 12:58 Travel History International Travel<30 days: No Contact w/Intl Traveler<30days: No Traveled to known affect area: No History of Present Illness HPI 87-year-old female here with a rash to her groin and buttocks since this morning. no respiratory involvement. She reports she recently started taking Plavix after having a TIA and was concerned this was the cause. The rash is localized to the groin and buttocks region only. No oral airway swelling. No wheezing or shortness of breath. No prior anaphylactic reactions. PFSH Past Medical History Hx Anticoagulant Therapy: Yes (plavix) Arthritis: Yes Autoimmune Disease: No Cancer: Yes (SKIN) Cardiac Catheterization: Yes Cardiovascular Problems: Yes (htn on meds) Cerebrovascular Accident: Yes (tia's) Diabetes: Yes Patient Takes Glucophage: No Diminished Hearing: Yes Diverticulitis: Yes Endocrine: Yes Gastrointestinal Disorders: No Herniated Disk: Yes ("LOWER BACK") Hypertension: Yes Immune Disorder: No Implanted Vascular Access Dvce: No Neurologic: No Psychiatric: No Radiation Therapy: Yes (FOR SKIN CA) Renal Failure: Yes (STAGE 4) Tetanus Vaccination: Unknown ?: Not Menopausal: Yes : 5 Para: 5 Tubal Ligation: Yes Past Surgical History Cholecystectomy: Yes Eye Surgery: Yes (BLEPHARECTOMY, CATARACTS) Oral Surgery: Yes (DENTURES) Tonsillectomy: Yes Other Surgery: Yes (TRACHEOTOMY A CHILD) Social History Alcohol Use: No Tobacco Use: No Substance Use: No Allergies-Medications (Allergen,Severity, Reaction): Coded Allergies: cephalexin (Verified Allergy, Intermediate, Rash, 12/13/17) ciprofloxacin (Verified Allergy, Intermediate, Rash, 12/13/17) Penicillins (Verified Allergy, Unknown, 12/13/17) morphine (Verified Allergy, Unknown, 12/13/17) Reported Meds & Prescriptions Reported Meds & Active Scripts Active Diphenhydramine (Diphenhydramine HCl) 25 Mg Cap 25 Mg PO Q6H PRN 5 Days Pepcid (Famotidine) 20 Mg Tab 20 Mg PO BID 5 Days Prednisone 20 Mg Tab 40 Mg PO DAILY Take 40 mg (2 tablets) daily for 5 days Plavix (Clopidogrel Bisulfate) 75 Mg Tab 75 Mg PO DAILY Reported Ditropan (Oxybutynin Chloride) 5 Mg Tab 5 Mg PO DAILY Vitamin C (Ascorbic Acid) 250 Mg Tab 250 Mg PO DAILY Flax Seed Oil (Flaxseed (Linseed)) 1,000 Mg Cap 1 Cap PO DAILY Ocuvite (Multiple Vitamins W/ Minerals) 1 Tab 1 Tab PO DAILY Hydralazine HCl 25 Mg Tablet 25 Mg PO TID Calcitriol 0.25 Mcg Cap 0.25 Mcg PO MON, WED, FRI Furosemide 20 Mg Tab 20 Mg PO DAILY Losartan (Losartan Potassium) 50 Mg Tab 50 Mg PO DAILY Omeprazole 20 Mg Tab 20 Mg PO DAILY Crestor (Rosuvastatin Calcium) 20 Mg Tab 20 Mg PO DAILY Glipizide 10 Mg Tab 20 Mg PO BIDAC Take 30 minutes before a meal Levemir Flextouch Pen Inj (Insulin Detemir) 300 unit/3 ML Pen 10 Units SQ HS Levemir Flextouch Pen Inj (Insulin Detemir) 300 unit/3 ML Pen 15 Units SQ DAILY Januvia (Sitagliptin Phosphate) 100 Mg Tab 100 Mg PO DAILY Review of Systems Except as stated in HPI: all other systems reviewed are Neg General / Constitutional: No: Fever Eyes: No: Visual changes HENT: No: Headaches Cardiovascular: No: Chest Pain or Discomfort Respiratory: No: Shortness of Breath Gastrointestinal: No: Abdominal Pain Genitourinary: No: Dysuria Skin: Positive Rash Neurologic: No: Weakness Psychiatric: No: Depression Physical Exam Narrative GENERAL: Alert and well-appearing 87-year-old female SKIN: Warm and dry. Slightly raised confluent and erythematous rash localized to the groin and buttocks region. HEAD: Normocephalic. EYES: No injection or drainage. MOUTH: No oropharynx swelling. Uvula is midline. Airways patent. NECK: Supple CARDIOVASCULAR: Regular rate and rhythm RESPIRATORY: Breath sounds equal bilaterally. No accessory muscle use. No wheezing. GASTROINTESTINAL: Abdomen soft, non-tender, nondistended. MUSCULOSKELETAL: No cyanosis, or edema. Data Data Last Documented VS Vital Signs Date Time Temp Pulse Resp B/P (MAP) Pulse Ox O2 Delivery O2 Flow Rate FiO2 12/13/17 12:32 97.9 82 16 172/77 (108) 97 Orders Orders Prednisone (Deltasone) (12/13/17 13:15) Diphenhydramine (Benadryl) (12/13/17 13:15) Famotidine (Pepcid) (12/13/17 13:15) [facility] Medical Decision Making Medical Screen Exam Complete: Yes Emergency Medical Condition: Yes Differential Diagnosis Allergic reaction, contact dermatitis, idiopathic urticaria Narrative Course 87-year-old female here with a rash to her groin and buttocks since this morning. no respiratory involvement. She reports she recently started taking Plavix after having a TIA and was concerned this was the cause. The rash is localized to the groin and buttocks region only. This appears to be a contact dermatitis rather than a drug reaction. She was given a dose of steroids, Benadryl, Pepcid and observe. On reexam she reports symptom improvement. She has a follow-up appointment on Friday with her primary doctor. She was encouraged to continue the Plavix as this does not appear to be a drug rash. Return precautions were discussed. Diagnosis Primary Impression: Rash and nonspecific skin eruption Referrals: Primary Care Physician Scripts Diphenhydramine (Diphenhydramine) 25 Mg Cap 25 MG PO Q6H Y for ALLERGIES for 5 Days, #20 CAP 0 Refills Prov: Alexandria Wallace 12/13/17 Famotidine (Pepcid) 20 Mg Tab 20 MG PO BID for 5 Days, #10 TAB 0 Refills Prov: Alexandria Wallace 12/13/17 Prednisone (Prednisone) 20 Mg Tab 40 MG PO DAILY, #10 TAB 0 Refills Take 40 mg (2 tablets) daily for 5 days Prov: Alexandria Wallace 12/13/17 Disposition: 01 DISCHARGE HOME Condition: Stable Alexandria Wallace Dec 13, 2017 14:05
== END 2017-12-13 14:32 | disposition home or self-care (01) ==
LOC: PHEFT 12:22
DX: R21 Rash and other nonspecific skin eruption (principal); M19.90 Unspecified osteoarthritis, unspecified site; I12.9 Hypertensive chronic kidney disease with stage 1 through stage 4 chronic kidney disease, or unspecified chronic kidney disease; E11.22 Type 2 diabetes mellitus with diabetic chronic kidney disease; N18.4 Chronic kidney disease, stage 4 (severe); Z79.899 Other long term (current) drug therapy; Z88.0 Allergy status to penicillin; Z86.73 Personal history of transient ischemic attack (TIA), and cerebral infarction without residual deficits; Z79.02 Long term (current) use of antithrombotics/antiplatelets
CPT/HCPCS: 99283; J7512; Q0163